=== PATIENT | female | born 1995 | race Caucasian/White ===

== ENCOUNTER 2023-12-14 19:16 | Emergency (ER) | payer SELFPAY ==
[~2023-12-14] VITALS: Ht 154.9 cm; Wt 63.0 kg
[2023-12-14 19:21] VITALS: BP 103/71; PULSE 78; RESP 16; TEMP 97.3; O2SAT 96
[2023-12-14 21:20] VITALS: BP 103/71; PULSE 78; RESP 16; TEMP 97.3; O2SAT 96
== END 2023-12-14 21:20 | disposition left against medical advice (07) ==
LOC: MED 19:16
DX: K08.89 Other specified disorders of teeth and supporting structures (principal); Z53.21 Procedure and treatment not carried out due to patient leaving prior to being seen by health care provider